=== PATIENT | female | born 1950 | race Caucasian/White ===

== ENCOUNTER 2018-05-22 13:57 | Inpatient (IN) | payer MEDICARE, BC ==
[~2018-05-22] VITALS: Ht 144.8 cm; Wt 76.7 kg
[2018-05-22] MEDS ORDERED: ONDANSETRON HCL/PF 4 MG/2 ML VIAL ONE ×2 (14:16→17:28)
[2018-05-22] MEDS ORDERED: MORPHINE SULFATE INJ 4 MG/ML DISP.SYRIN ONE ×2 (14:16→15:49)
[2018-05-22 14:29] LABS: BASOPHILS # (AUTO) 0.3 /CMM (0.0-0.2); BASOPHILS % (AUTO) 1.8 % (0.0-2.0); EOSINOPHILS % (AUTO) 1.3 % (0.0-6.0); HEMATOCRIT 42 % (33-45); HEMOGLOBIN 13.4 g/dL (11.5-14.8); LYMPHOCYTES # (AUTO) 1.3 /CMM (0.8-4.8); LYMPHOCYTES % (AUTO) 7.6 % (20.0-44.0); MEAN CORPUSCULAR HEMOGLOBIN 29 PG (26.0-33.0); MEAN CORPUSCULAR HGB CONC 32 g/dl (31.0-36.0); MEAN CORPUSCULAR VOLUME 91 fL (82-100); MONOCYTES # (AUTO) 1.1 /CMM (0.1-1.30); MONOCYTES % (AUTO) 6.9 % (2.0-12.0); NEUTROPHILS # (AUTO) 13.6 /CMM (1.8-8.9); NEUTROPHILS % (AUTO) 82.4 % (43.0-81.0); PLATELET COUNT (AUTO) 393 /CMM (150-450); RDW COEFFICIENT OF VARIATION 13.7 (11.5-15.0); RED BLOOD CELL COUNT(AUTO) 4.59 MIL/uL (4.0-5.2); WHITE BLOOD COUNT (AUTO) 16.5 K/uL (4.3-11.0)
[2018-05-22] MEDS ORDERED: ONDANSETRON HCL/PF 4 MG/2 ML VIAL IVP ONE (14:30)
[2018-05-22] MEDS ORDERED: IV NS 0.9% 500 ML BAG IV ONE (14:30)
[2018-05-22] MEDS ORDERED: MORPHINE SULFATE INJ 2 MG/ML DISP.SYRIN IV ONE ×2 (14:30→16:00)
[2018-05-22 14:41] LABS: CREATININE 0.8 mg/dL (0.6-1.3); POTASSIUM 3.6 mmol/L (3.5-5.1)
[2018-05-22] MEDS ORDERED: CLOP75TA15 PO ×2 (14:42→17:04)
[2018-05-22] MEDS ORDERED: AMLO-504 PO (14:42)
[2018-05-22] MEDS ORDERED: ATOR10TA PO (14:42)
[2018-05-22] MEDS ORDERED: PANT40TA4 PO (14:42)
[2018-05-22] MEDS ORDERED: ASPI-1169 PO (14:42)
[2018-05-22] MEDS ORDERED: PRED5TAB PO (14:42)
[2018-05-22] MEDS ORDERED: OXYM40TA12 PO (14:42)
[2018-05-22] MEDS ORDERED: FENO54TA PO (14:42)
[2018-05-22 14:45] LABS: INR 0.98 (0.85-1.15)
[2018-05-22 14:46] LABS: ALBUMIN 3.7 g/dL (3.4-5.0); BILIRUBIN,DIRECT 0.1 mg/dL (0.0-0.2); BILIRUBIN,TOTAL 0.7 mg/dL (0.2-1.0); TOTAL PROTEIN, SERUM 7.6 g/dL (6.4-8.2)
[2018-05-22 14:49] LABS: TROPONIN I 0.023 ng/mL (0.00-0.056)
[2018-05-22] MEDS ORDERED: INSU100V11 SQ (14:49)
[2018-05-22] MEDS ORDERED: INSU100V7 SQ (14:49)
[2018-05-22] MEDS ORDERED: BLOO-668 IN (14:49)
[2018-05-22] MEDS ORDERED: HYDROMORPHONE INJ 0.5 MG/0.5 ML SYRINGE IV STA (17:09)
[2018-05-22] MEDS ORDERED: HYDROMORPHONE 1 MG/1 ML DISP.SYRIN ONE (17:14)
[2018-05-22] MEDS ORDERED: ACETAMINOPHEN 325 MG TABLET PO PRN (17:30)
[2018-05-22] MEDS ORDERED: MAG HYDROX/AL HYDROX/SIMETH 30 ML UDC PO PRN (17:30)
[2018-05-22] MEDS ORDERED: MORPHINE SULFATE INJ 2 MG/ML DISP.SYRIN IV PRN (17:30)
[2018-05-22] MEDS ORDERED: TEMAZEPAM 15 MG CAPSULE PO PRN (17:30)
[2018-05-22] MEDS ORDERED: HYDROCODONE/APAP 5/325MG 1 EACH TABLET PO PRN (17:30)
[2018-05-22] MEDS ORDERED: LORAZEPAM INJ 2 MG/ML VIAL IV PRN (17:30)
[2018-05-22] MEDS ORDERED: Z GUARD REMEDY 2 OZ OINT TP PRN (17:30)
[2018-05-22] MEDS ORDERED: MAGNESIUM HYDROXIDE 30 ML UDC PO PRN (17:30)
[2018-05-22] MEDS ORDERED: DEXTROSE 50%-WATER 50 ML DISP.SYRIN IV PRN (17:30)
[2018-05-22] MEDS ORDERED: ONDANSETRON HCL/PF 4 MG/2 ML VIAL IV STA (17:32)
[2018-05-22 20:00] VITALS: BP 139/73
[2018-05-22] MEDS ORDERED: MORPHINE SULFATE INJ 4 MG/ML DISP.SYRIN IV PRN (20:00)
[2018-05-22] MEDS: HYDROMORPHONE INJ 2 MG/ML DISP.SYRIN IV PRN (20:20)
[2018-05-22] MEDS: ONDANSETRON HCL/PF 4 MG/2 ML VIAL IVP PRN (20:25)
[2018-05-22] MEDS: IV D5/0.45 NACL 1,000 ML IV PRN (20:43)
[2018-05-22] MEDS: BLOOD SUGAR DIAGNOSTIC 1 EACH STRIP VI SCH ×2 (22:00→23:00)
[2018-05-22] MEDS: *INSULIN REGULAR(HUMULIN R)HUM 100 UNIT/ML VIAL SQ PRN (22:48)
[2018-05-22] MEDS: INSULIN GLARGINE, 100 UNIT/ML CARTRIDGE SQ SCH (22:50)
[2018-05-22] MEDS: HEPARIN SODIUM, PORCINE 5000 UNITS/1 ML VIAL SQ SCH (22:51)
[2018-05-23 00:30] VITALS: BP 128/83
[2018-05-23 04:00] VITALS: BP 127/87
[2018-05-23] MEDS: INSULIN REGULAR, HUMAN 100 UNIT/ML 3 ML VIAL SQ PRN ×2 (06:31→17:31)
[2018-05-23] MEDS: HYDROMORPHONE INJ 2 MG/ML DISP.SYRIN IV PRN ×2 (06:32→12:23)
[2018-05-23] MEDS: BLOOD SUGAR DIAGNOSTIC 1 EACH STRIP VI SCH ×4 (06:32→21:59)
[2018-05-23 06:44] LABS: BASOPHILS % (AUTO) 0.4 % (0.0-2.0); EOSINOPHILS % (AUTO) 1.7 % (0.0-6.0); HEMATOCRIT 33 % (33-45); HEMOGLOBIN 10.4 g/dL (11.5-14.8); LYMPHOCYTES # (AUTO) 1.3 /CMM (0.8-4.8); LYMPHOCYTES % (AUTO) 14.4 % (20.0-44.0); MEAN CORPUSCULAR HEMOGLOBIN 30 PG (26.0-33.0); MEAN CORPUSCULAR HGB CONC 32 g/dl (31.0-36.0); MEAN CORPUSCULAR VOLUME 93 fL (82-100); MONOCYTES # (AUTO) 0.8 /CMM (0.1-1.30); MONOCYTES % (AUTO) 9.1 % (2.0-12.0); NEUTROPHILS # (AUTO) 6.7 /CMM (1.8-8.9); NEUTROPHILS % (AUTO) 74.4 % (43.0-81.0); PLATELET COUNT (AUTO) 269 /CMM (150-450); RDW COEFFICIENT OF VARIATION 14.6 (11.5-15.0); RED BLOOD CELL COUNT(AUTO) 3.51 MIL/uL (4.0-5.2)
[2018-05-23 06:57] LABS: CREATININE 0.8 mg/dL (0.6-1.3); MAGNESIUM 1.5 mg/dL (1.8-2.4); PHOSPHORUS 3.2 mg/dL (2.5-4.9); POTASSIUM 4.2 mmol/L (3.5-5.1)
[2018-05-23 08:00] VITALS: BP 116/55
[2018-05-23] MEDS: predniSONE 5 MG TABLET PO SCH ×2 (08:16→08:27)
[2018-05-23] MEDS: PANTOPRAZOLE 40 MG TABLET.DR PO SCH (08:16)
[2018-05-23] MEDS: ASPIRIN 81 MG TAB.CHEW PO SCH (08:16)
[2018-05-23] MEDS: ATORVASTATIN 10 MG TABLET PO SCH (08:16)
[2018-05-23] MEDS: HEPARIN SODIUM, PORCINE 5000 UNITS/1 ML VIAL SQ SCH ×3 (08:17→22:04)
[2018-05-23] MEDS: Fenofibrate 48 MG TABLET PO SCH (08:19)
[2018-05-23] MEDS ORDERED: AMLODIPINE BES PO SCH (09:00)
[2018-05-23] MEDS ORDERED: CLOPIDOGREL BISULFATE 75 MG TABLET PO SCH (09:00)
[2018-05-23] MEDS ORDERED: [UNRECOGNIZED DRUG - OTHER] PO SCH (09:00)
[2018-05-23] MEDS ORDERED: PANTOPRAZOLE 40 MG VIAL IV SCH (09:00)
[2018-05-23] MEDS ORDERED: OLMESARTAN MED PO SCH (09:00)
[2018-05-23 12:00] VITALS: BP 157/82
[2018-05-23] MEDS: Magnesium 1GM/D5W 100ML PREMIX 100 ML IV SCH ×2 (12:09→13:53)
[2018-05-23] MEDS: AZOR PO SCH (12:20)
[2018-05-23] MEDS: IV D5/0.45 NACL 1,000 ML IV PRN (12:38)
[2018-05-23 16:00] VITALS: BP 143/64
[2018-05-23] MEDS: HYDROMORPHONE 1 MG/1 ML DISP.SYRIN IV PRN (17:05)
[2018-05-23] MEDS: ONDANSETRON HCL/PF 4 MG/2 ML VIAL IVP PRN (17:15)
[2018-05-23 20:00] VITALS: BP 125/63
[2018-05-23] MEDS: *INSULIN REGULAR(HUMULIN R)HUM 100 UNIT/ML VIAL SQ PRN (22:02)
[2018-05-23] MEDS: INSULIN GLARGINE, 100 UNIT/ML CARTRIDGE SQ SCH (22:03)
[2018-05-24] VITALS: BP 101/50
[2018-05-24 04:00] VITALS: BP 120/65
[2018-05-24] MEDS: IV D5/0.45 NACL 1,000 ML IV PRN (04:37)
[2018-05-24] MEDS: HEPARIN SODIUM, PORCINE 5000 UNITS/1 ML VIAL SQ SCH ×2 (05:30→14:38)
[2018-05-24] MEDS: ONDANSETRON HCL/PF 4 MG/2 ML VIAL IVP PRN ×2 (05:38→12:16)
[2018-05-24] MEDS: HYDROMORPHONE 1 MG/1 ML DISP.SYRIN IV PRN ×2 (05:39→12:12)
[2018-05-24 06:53] LABS: CALCIUM, SERUM 7.8 mg/dL (8.5-10.1); MAGNESIUM 2.1 mg/dL (1.8-2.4); POTASSIUM 4.3 mmol/L (3.5-5.1)
[2018-05-24] MEDS: BLOOD SUGAR DIAGNOSTIC 1 EACH STRIP VI SCH ×2 (07:13→12:12)
[2018-05-24] MEDS: INSULIN REGULAR, HUMAN 100 UNIT/ML 3 ML VIAL SQ PRN ×2 (07:13→12:02)
[2018-05-24 08:00] VITALS: BP 137/75
[2018-05-24] MEDS: PANTOPRAZOLE 40 MG TABLET.DR PO SCH (08:28)
[2018-05-24] MEDS: ATORVASTATIN 10 MG TABLET PO SCH (08:29)
[2018-05-24] MEDS: predniSONE 5 MG TABLET PO SCH (08:30)
[2018-05-24] MEDS: ASPIRIN 81 MG TAB.CHEW PO SCH (08:32)
[2018-05-24] MEDS: Fenofibrate 48 MG TABLET PO SCH (08:33)
[2018-05-24] MEDS: AZOR PO SCH (08:34)
[2018-05-24 12:13] VITALS: BP 141/71
== END 2018-05-24 14:59 | disposition short-term general hospital (02) | DRG 560 ==
LOC: ER 13:59 → TELE 16:16
PROVIDERS: ADMIT Nurse Practitioner Acute Care; ATTEND Nurse Practitioner Acute Care
DX: M97.12XA Periprosthetic fracture around internal prosthetic left knee joint, initial encounter (principal); D68.69 Other thrombophilia; S82.892A Other fracture of left lower leg, initial encounter for closed fracture; I10 Essential (primary) hypertension; D72.829 Elevated white blood cell count, unspecified; E78.5 Hyperlipidemia, unspecified; M19.90 Unspecified osteoarthritis, unspecified site; E11.9 Type 2 diabetes mellitus without complications; Z86.718 Personal history of other venous thrombosis and embolism; Z96.642 Presence of left artificial hip joint; Z96.612 Presence of left artificial shoulder joint; Z79.02 Long term (current) use of antithrombotics/antiplatelets; M06.9 Rheumatoid arthritis, unspecified; W18.30XA Fall on same level, unspecified, initial encounter; Y92.091 Bathroom in other non-institutional residence as the place of occurrence of the external cause
CPT/HCPCS: 36415; 71045-TC; 73590-TC; 73610-TC; 73700-TC; 80048-TC; 80061-TC; 80076-TC; 82550-TC; 82962-TC; 83735-TC; 84100-TC; 84484-TC; 85025-TC; 85730-TC; 86850-TC; 87081-TC; 93307-TC; A4606; A6402; J1170; J1644; J1815; J2270; J2405; J3475; J3490; J7030; J7040; J7512; Z7610

== ENCOUNTER 2018-09-01 15:18 | Inpatient (IN) | payer MEDICARE, BC ==
[~2018-09-01] VITALS: Ht 144.8 cm; Wt 64.9 kg
[~2018-09-01 15:18] MED LIST: AMLO-504 PO; ASPI-1169 PO; ATOR10TA PO; BLOO-668 IN; CLOP75TA15 PO; FENO54TA PO; INSU100V11 SQ; INSU100V7 SQ; OXYM40TA12 PO; PANT40TA4 PO; PRED5TAB PO
--- NOTE | 2018-09-01 15:47 | NUR ---
PT BROUGHT IN BY [facility] FOR BLLOD STOOLS PT LIVES IN SNF AND HAS PICC LINE IN RIGHT UPPER ARM
[2018-09-01 16:32] LABS: BASOPHILS # (AUTO) 0.1 /CMM (0.0-0.2); BASOPHILS % (AUTO) 0.5 % (0.0-2.0); EOSINOPHILS % (AUTO) 3.7 % (0.0-6.0); HEMATOCRIT 26 % (33-45); HEMOGLOBIN 8.2 g/dL (11.5-14.8); LYMPHOCYTES # (AUTO) 1.2 /CMM (0.8-4.8); LYMPHOCYTES % (AUTO) 10.9 % (20.0-44.0); MEAN CORPUSCULAR HGB CONC 31 g/dl (31.0-36.0); MEAN CORPUSCULAR VOLUME 87 fL (82-100); MONOCYTES # (AUTO) 0.7 /CMM (0.1-1.30); MONOCYTES % (AUTO) 6.7 % (2.0-12.0); NEUTROPHILS # (AUTO) 8.8 /CMM (1.8-8.9); NEUTROPHILS % (AUTO) 78.2 % (43.0-81.0); PLATELET COUNT (AUTO) 268 /CMM (150-450); WHITE BLOOD COUNT (AUTO) 11.2 K/uL (4.3-11.0)
[2018-09-01 16:39] LABS: CALCIUM, SERUM 8.3 mg/dL (8.5-10.1); CREATININE 0.6 mg/dL (0.6-1.3); POTASSIUM 4.3 mmol/L (3.5-5.1)
[2018-09-01 16:59] LABS: ALBUMIN 2.5 g/dL (3.4-5.0); BILIRUBIN,DIRECT 0.1 mg/dL (0.0-0.2); BILIRUBIN,TOTAL 0.4 mg/dL (0.2-1.0); TOTAL PROTEIN, SERUM 6.2 g/dL (6.4-8.2)
--- NOTE | 2018-09-01 17:25 | NUR ---
PT BEING EVALUATED BY MD KLEIN PT BACK FROM CT SCANN PENDING ADMISSION
--- NOTE | 2018-09-01 17:36 | NUR ---
RN REPORT CALLED TO [facility] BEDSIDE NURSE PT ADMITTED TO 106 ADMITTING MD KENNEY
[2018-09-01] MEDS ORDERED: HYDROCODONE/APAP 5/325MG 1 EACH TABLET PO PRN (18:00)
[2018-09-01] MEDS ORDERED: ACETAMINOPHEN 325 MG TABLET PO PRN (18:00)
[2018-09-01] MEDS ORDERED: HYDROMORPHONE 1 MG/1 ML DISP.SYRIN IV STA (18:00)
[2018-09-01] MEDS ORDERED: Z GUARD REMEDY 2 OZ OINT TP PRN (18:00)
[2018-09-01] MEDS ORDERED: ONDANSETRON HCL/PF 4 MG/2 ML VIAL IVP PRN (18:00)
[2018-09-01] MEDS ORDERED: ZOLPIDEM TARTRATE 5 MG TABLET PO PRN (18:00)
[2018-09-01] MEDS ORDERED: HYDROMORPHONE 1 MG/1 ML DISP.SYRIN ONE (18:04)
--- NOTE | 2018-09-01 19:37 | NUR ---
MS RN NOTES PER PT, SHE IS NOT ALLERGIC TO HYDROMORPHONE. 2 RN WITNESS.
--- NOTE | 2018-09-01 20:00 | NUR ---
MS RN NOTES RECEIVED PT ON BED. A/O X 4. ON ROOM AIR SATURATING WELL. PT IV ACCESS ON RIGHT PICC LINE PATENT AND INTACT WITH IV NS @75CC/HR RUNNING PATENT AND INTACT. IV ACCESS ON AMOS 20G SL. HEAD OF BED ELEVATED. SIDE RAILS UP. CALL LIGHT WITHIN REACH. BED ALARM ON. WILL CONTINUE TO MONITOR PT CLOSELY.
[2018-09-01] MEDS ORDERED: HYDROMORPHONE INJ 2 MG/ML DISP.SYRIN IV PRN (21:00)
[2018-09-01] MEDS: IV NS 0.9% 1,000 ML IV PRN (21:25)
[2018-09-01] MEDS: ATORVASTATIN 10 MG TABLET PO SCH (21:25)
[2018-09-01] MEDS: BLOOD SUGAR DIAGNOSTIC 1 EACH STRIP IN SCH (21:29)
[2018-09-01] MEDS: INSULIN GLARGINE, 100 UNIT/ML CARTRIDGE SQ SCH (21:30)
--- NOTE | 2018-09-01 21:30 | NUR ---
MS RN NOTES LANTUS NOT GIVEN, PT DOES NOT WANT TO EAT DUE TO CLEAR LIQUID DIET.
--- NOTE | 2018-09-01 21:41 | NUR ---
MS ST NOTES PT WANT DILAUDID 2MG Q3H FOR PRN FOR PAIN. CALLED THE [facility] TO FAX HER PREVIOUS MEDS. INFORMED KIANA ABOUT PT REQUEST. PER KIANA CHU TO GIVE 2MG/1ML DILAUDID IN 1.5ML SOLN Q3H FOR PAIN 6-10. Addendum: 09/01/18 at 2338 by DONNELL LANDAVERDE RN DILAUDID 2MG / 1ML DILAUDID IN 1.5ML SOLUTION MAKING IT 3MG. Q3H FOR PAIN LEVEL 6-10.
[2018-09-01] MEDS: HYDROMORPHONE INJ 2 MG/ML DISP.SYRIN IV PRN (21:59)
[2018-09-02] VITALS (9 sets, daily range): BP systolic 136–159; BP diastolic 34–69
[2018-09-02] MEDS: HYDROMORPHONE INJ 2 MG/ML DISP.SYRIN IV PRN ×7 (03:56→22:57)
[2018-09-02 06:02] LABS: BASOPHILS % (AUTO) 0.7 % (0.0-2.0); EOSINOPHILS % (AUTO) 5.2 % (0.0-6.0); HEMATOCRIT 22 % (33-45); LYMPHOCYTES # (AUTO) 1.7 /CMM (0.8-4.8); LYMPHOCYTES % (AUTO) 26.1 % (20.0-44.0); MEAN CORPUSCULAR HGB CONC 32 g/dl (31.0-36.0); MEAN CORPUSCULAR VOLUME 86 fL (82-100); MONOCYTES # (AUTO) 0.7 /CMM (0.1-1.30); NEUTROPHILS # (AUTO) 3.7 /CMM (1.8-8.9); PLATELET COUNT (AUTO) 236 /CMM (150-450); RED BLOOD CELL COUNT(AUTO) 2.53 MIL/uL (4.0-5.2); WHITE BLOOD COUNT (AUTO) 6.5 K/uL (4.3-11.0)
[2018-09-02 06:14] LABS: HEMOGLOBIN 6.9 g/dL (11.5-14.8)
--- NOTE | 2018-09-02 06:17 | NUR ---
MS RN NOTES CALLED FONDANT COOKER FOR H/H OF 6.9 AND 22. WILL MONITOR PT CLOSELY.
[2018-09-02 06:25] LABS: THYROID STIMULATING HORMONE 0.701 uIU/mL (0.358-3.74)
--- NOTE | 2018-09-02 06:47 | NUR ---
MS RN NOTES NO ACUTE CHANGES NOTED DURING THE SHIFT. SCANTY AMOUNT OF RED BLOODY STOOL IN DIAPER. DUE MEDS GIVEN. PROVIDED COMFORT AND SAFETY. WILL ENDORSE TO THE AM NURSE FOR CONTINUITY OF CARE.
--- NOTE | 2018-09-02 06:47 | NUR ---
MS RN NOTES ONION TOPPER ORDERED ONE UNIT PRBC. WILL CONTINUE TO MONITOR PT CLOSELY.
--- NOTE | 2018-09-02 07:18 | NUR ---
MS/RN Patient received Patient received from [employer] food shift supervisor. Lab at bedside to cross match patient for one unit of PRBC's. All needs addressed, safety measures in place, will continue to monitor and ensure safety.
[2018-09-02 07:20] LABS: EOSINOPHILS % (MANUAL) 4 % (0-4); LYMPHOCYTES % (MANUAL) 23 % (16-48); MONOCYTES % (MANUAL) 7 % (0-11.0); NEUTROPHILS % (MANUAL) 66 (42-76)
[2018-09-02] MEDS: BLOOD SUGAR DIAGNOSTIC 1 EACH STRIP IN SCH ×4 (07:30→22:11)
[2018-09-02 07:35] LABS: ALBUMIN 2.1 g/dL (3.4-5.0); BILIRUBIN,TOTAL 0.3 mg/dL (0.2-1.0); CREATININE 0.5 mg/dL (0.6-1.3); MAGNESIUM 1.6 mg/dL (1.8-2.4); PHOSPHORUS 3.7 mg/dL (2.5-4.9); POTASSIUM 4.4 mmol/L (3.5-5.1); TOTAL PROTEIN, SERUM 5.4 g/dL (6.4-8.2)
[2018-09-02] MEDS: ATORVASTATIN 10 MG TABLET PO SCH (08:17)
[2018-09-02] MEDS: PANTOPRAZOLE 40 MG TABLET.DR PO SCH (08:17)
[2018-09-02] MEDS: predniSONE 5 MG TABLET PO SCH (08:18)
[2018-09-02] MEDS: AMLODIPINE BESYLATE 10 MG TABLET PO SCH (08:18)
[2018-09-02] MEDS: LOSARTAN POTASSIUM 50 MG TABLET PO SCH (08:18)
[2018-09-02] MEDS: Fenofibrate 48 MG TABLET PO SCH (09:10)
--- NOTE | 2018-09-02 09:39 | NUR ---
MS/RN Blood transfusion Blood transfusion started for Hb 6.9. Blood verified with second RN.
--- NOTE | 2018-09-02 10:23 | NUR ---
MS/RN Labs Labs reviewed, magnesium level 1.6, replaced by pharmacy.
--- NOTE | 2018-09-02 10:29 | NUR ---
WOUND CARE CONSULT: PT FOLLOWED BY PLASTIC SURGERY TEAM FOR WOUND CARE. DEFER TO SURGICAL TEAM FOR WOUND TREATMENT PLAN. ALL PRESSURE ULCER PREVENTION MEASURES IN PLACE AND DISCUSSED WITH NURSING STAFF. WILL SEE PRN. CURRENT BRADENT SCORE IS 21.
[2018-09-02] MEDS: Magnesium 1GM/D5W 100ML PREMIX 100 ML IV SCH ×2 (11:04→11:06)
[2018-09-02] MEDS: IV NS 0.9% 1,000 ML IV PRN (11:05)
--- NOTE | 2018-09-02 12:30 | NUR ---
MS/RN Blood transfusion Blood transfusion completed, no reaction noted, vital signs remained stable throughout the procedure. H&H scheduled to be redrawn at 4p.
--- NOTE | 2018-09-02 13:17 | NUR ---
MS/RN Consent Consent obtained for left knee wound debridement by Dr Silverman.
--- NOTE | 2018-09-02 14:08 | NUR ---
Patient currently resides at [facility] ctr [phone]. She requires assistance with adl's and assistive device with mobility. Has good family support. Current dc plan is to return to SNF once discharge. Addendum: 09/02/18 at 1408 by EULALIA MAYBERRY RN Amended: Links added.
[2018-09-02] MEDS ORDERED: LIDOCAINE 2%-EPI 1:100,000 30 ML VIAL TP ONE (14:30)
[2018-09-02] MEDS ORDERED: SILVER NITRATE APPLICATOR 1 EA BOX TP ONE (14:30)
--- NOTE | 2018-09-02 15:54 | NUR ---
MS/RN S/B Dr Osuna Seen by Dr Osuna - patient refusing colonoscopy at this time despite being educated as to the benefits of this test. As refusing, diet to be advanced as tolerated.
[2018-09-02] MEDS: GLUCERNA SHAKE 237 ML CAN PO SCH (17:00)
[2018-09-02 17:01] LABS: HEMOGLOBIN 8.2 g/dL (11.5-14.8)
--- NOTE | 2018-09-02 17:53 | NUR ---
MS/RN H&H H&H redrawn and now resulted as 8.11/17.
--- NOTE | 2018-09-02 20:30 | NUR ---
RN OPENING NOTES RECEIVED REPORT FROM AMANDA ST. PATIENT A/A/O X3, ABLE TO MAKE NEEDS KNOWN & STATE PAIN. BREATHING EVEN & UNLABORED, TOLERATING ROOM AIR. DENIES ANY SOB OR DIFFICULTY BREATHING. RADIAL PULSES PRESENT. RIGHT UPPER ARM PICC LINE INTACT & PATENT W/ DRESSING CDI & IVF NS INFUSING WELL @ 75 ML/HR. C/O LEFT FOOT PAIN, 03/31. PAIN MED TO BE GIVEN. SAFETY MEASURES IN PLACE W/ SIDE RAILS UP & BED ALARM ON. INSTRUCTED TO USE CALL LIGHT FOR ASSISTANCE. WILL CONTINUE TO MONITOR.
[2018-09-02] MEDS ORDERED: POLYETHYLENE GLYCOL 3350 17 GM POWD.PACK PO SCH (22:00)
[2018-09-02] MEDS: INSULIN GLARGINE, 100 UNIT/ML CARTRIDGE SQ SCH (22:12)
[2018-09-03] MEDS: HYDROMORPHONE INJ 2 MG/ML DISP.SYRIN IV PRN ×4 (02:02→11:54)
[2018-09-03 04:00] VITALS: BP 160/82
[2018-09-03] MEDS: IV NS 0.9% 1,000 ML IV PRN (05:21)
[2018-09-03] MEDS: BLOOD SUGAR DIAGNOSTIC 1 EACH STRIP IN SCH ×2 (07:35→11:43)
[2018-09-03] MEDS: GLUCERNA SHAKE 237 ML CAN PO SCH ×2 (07:58→11:42)
[2018-09-03] MEDS: PANTOPRAZOLE 40 MG TABLET.DR PO SCH (07:59)
[2018-09-03] MEDS: Fenofibrate 48 MG TABLET PO SCH (08:00)
[2018-09-03] MEDS: AMLODIPINE BESYLATE 10 MG TABLET PO SCH (08:00)
[2018-09-03] MEDS: predniSONE 5 MG TABLET PO SCH (08:00)
[2018-09-03] MEDS: ATORVASTATIN 10 MG TABLET PO SCH (08:00)
[2018-09-03] MEDS: LOSARTAN POTASSIUM 50 MG TABLET PO SCH (08:01)
--- NOTE | 2018-09-03 08:43 | NUR ---
MS ST NOTE PATIENT REQUESTING PAIN MEDICATION-DILAUDID IV FOR PAIN 05/01 PAIN ON LEFT KNEE/LEG. THROBBING FEELING. WILL REASSESS PAIN FOR EFFECTIVENESS Addendum: 09/03/18 at 0857 by STEPHANY OWENS RN DILAUDID 3MG GIVEN. 1MG WASTED WITH ALMA ROSA CALDERA.
[2018-09-03] MEDS ORDERED: DAKINS QUARTER STRENGTH (0.125%) 480 ML BOTTLE TOP SCH (09:00)
[2018-09-03] MEDS ORDERED: HYDROGEL DRESSING 90 GM TUBE TP SCH (09:00)
--- NOTE | 2018-09-03 11:54 | NUR ---
MS RN NOTE PATIENT REQUESTING PAIN MEDICATION-DILAUDID IV FOR PAIN 8/10 PAIN ON LEFT KNEE/LEG. THROBBING FEELING. DILAUDID 3MG IV GIVEN. 1 MG WASTED WITH ALMA ROSA GILLETTE. WILL REASSESS PAIN FOR EFFECTIVENESS
[2018-09-03 12:00] VITALS: BP 156/81
--- NOTE | 2018-09-03 14:12 | NUR ---
PAPER WINDER NOTE PATIENT DISCHARGED IN STABLE CONDITION. NO BELONGINGS AT BEDSIDE WITH PATIENT. NO SOB OR DISTRESS NOTED, ON ROOM AIR TOLERATING WELL. ABLE TO COMMUNICATE NEEDS. ALERT AND ORIENTED X3. ALL DUE MEDICATIONS GIVEN ORDERED. ALL NURSING CARE NEEDS ATTENDED TO NEEDED. RIGHT UPPER ARM PICC LINE INTACT AND PATENT FLUSHES WELL, PATIENT CAME IN WITH PICC LINE PRIOR TO ADMISSION FROM SNF. BLOOD SUGAR CHECKED THROUGHOUT SHIFT AND NO INSULIN COVERAGE. ALL DISCHARGE INSTRUCTIONS GIVEN TO PATIENT AND RN PICK UP MAN ISAAC. DISCHARGE INSTRUCTIONS RECEIVED BACK FROM PATIENT AND RN. LEFT VIA AMBULANCE TO [facility] Addendum: 09/03/18 at 1417 by STEPHANY OWENS RN WOUND DEBRIDEMENT NOT DONE. GAVE PATIENT INFORMATION FOR DR. RODRIGUEZ FOR OUTPATIENT CARE
--- NOTE | 2018-09-03 14:13 | NUR ---
PATIENT REFUSED TO HAVE WOUND PICTURES DONE. PATIENT STATED ' I HAD THE GENTLEMEN TAKE THEM THE OTHER DAY, NOT MUCH HAS CHANGED SINCE THEN.
== END 2018-09-03 14:12 | DRG 392 ==
LOC: ER 15:21 → TELE1 17:55 → MEDSG1 21:31
PROVIDERS: ADMIT Internal Medicine; ATTEND Internal Medicine
PROC: 30233N1 Transfusion of Nonautologous Red Blood Cells into Peripheral Vein, Percutaneous Approach (ICD-10-PCS; principal; 2018-09-02)
PROC: 02HV33Z Insertion of Infusion Device into Superior Vena Cava, Percutaneous Approach (ICD-10-PCS; 2018-09-02)
PROC: B548ZZA Ultrasonography of Superior Vena Cava, Guidance (ICD-10-PCS; 2018-09-02)
DX: K57.90 Diverticulosis of intestine, part unspecified, without perforation or abscess without bleeding (principal); L97.429 Non-pressure chronic ulcer of left heel and midfoot with unspecified severity; M80.88XA Other osteoporosis with current pathological fracture, vertebra(e), initial encounter for fracture; L97.329 Non-pressure chronic ulcer of left ankle with unspecified severity; N20.0 Calculus of kidney; E78.5 Hyperlipidemia, unspecified; I10 Essential (primary) hypertension; E11.9 Type 2 diabetes mellitus without complications; Z79.01 Long term (current) use of anticoagulants; E11.42 Type 2 diabetes mellitus with diabetic polyneuropathy; E11.51 Type 2 diabetes mellitus with diabetic peripheral angiopathy without gangrene; E11.621 Type 2 diabetes mellitus with foot ulcer; E11.622 Type 2 diabetes mellitus with other skin ulcer; M06.9 Rheumatoid arthritis, unspecified; M19.90 Unspecified osteoarthritis, unspecified site; Z79.4 Long term (current) use of insulin; Z88.2 Allergy status to sulfonamides; Z88.8 Allergy status to other drugs, medicaments and biological substances; Z91.013 Allergy to seafood; Z79.899 Other long term (current) drug therapy; Z79.82 Long term (current) use of aspirin; S82.899A Other fracture of unspecified lower leg, initial encounter for closed fracture; X58.XXXA Exposure to other specified factors, initial encounter; Y92.9 Unspecified place or not applicable; S32.9XXD Fracture of unspecified parts of lumbosacral spine and pelvis, subsequent encounter for fracture with routine healing; Z98.890 Other specified postprocedural states; Z98.62 Peripheral vascular angioplasty status; L97.529 Non-pressure chronic ulcer of other part of left foot with unspecified severity; M85.80 Other specified disorders of bone density and structure, unspecified site; K59.00 Constipation, unspecified; Z68.31 Body mass index [BMI] 31.0-31.9, adult; Z79.02 Long term (current) use of antithrombotics/antiplatelets; D72.829 Elevated white blood cell count, unspecified; T81.89XA Other complications of procedures, not elsewhere classified, initial encounter; Y83.9 Surgical procedure, unspecified as the cause of abnormal reaction of the patient, or of later complication, without mention of misadventure at the time of the procedure; Y92.129 Unspecified place in nursing home as the place of occurrence of the external cause; T40.2X5A Adverse effect of other opioids, initial encounter; D64.9 Anemia, unspecified
CPT/HCPCS: 36415; 80048-TC; 80053-TC; 80061-TC; 80076-TC; 82962-TC; 83735-TC; 84100-TC; 84443-TC; 85025-TC; 85027-TC; 85730-TC; 86850-TC; 86921-TC; 87081-TC; A4606; A6248; A6402; A6403; G0378; J1170; J1815; J3475; J3490; J7030; J7512; P9016-BL; Z7610

== ENCOUNTER 2018-09-07 12:29 | Outpatient (CLI) | payer MEDICARE, BC ==
[~2018-09-07 12:29] MED LIST changes: -ASPI-1169 PO; -CLOP75TA15 PO
== END 2018-09-07 23:59 | disposition home health service (06) ==
LOC: WOU 12:29
PROVIDERS: ATTEND Surgery
DX: E11.621 Type 2 diabetes mellitus with foot ulcer (principal); L97.528 Non-pressure chronic ulcer of other part of left foot with other specified severity; L97.428 Non-pressure chronic ulcer of left heel and midfoot with other specified severity; L97.328 Non-pressure chronic ulcer of left ankle with other specified severity; T81.31XA Disruption of external operation (surgical) wound, not elsewhere classified, initial encounter; M06.9 Rheumatoid arthritis, unspecified; M62.50 Muscle wasting and atrophy, not elsewhere classified, unspecified site; I10 Essential (primary) hypertension; Z91.81 History of falling; Z96.653 Presence of artificial knee joint, bilateral; Z96.642 Presence of left artificial hip joint; Z79.02 Long term (current) use of antithrombotics/antiplatelets; Z79.82 Long term (current) use of aspirin; Z79.4 Long term (current) use of insulin
CPT/HCPCS: 11042; 11043; 17250; A6402 ×3; Z7610

== ENCOUNTER 2018-09-13 21:01 | Inpatient (IN) | END 2018-09-14 21:39 | disposition short-term general hospital (02) | DRG 920 | DX: T81.30XA Disruption of wound, unspecified, initial encounter (principal); M00.9 Pyogenic arthritis, unspecified; L97.329 Non-pressure chronic ulcer of left ankle with unspecified severity; L97.429 Non-pressure chronic ulcer of left heel and midfoot with unspecified severity; L03.116 Cellulitis of left lower limb; N39.0 Urinary tract infection, site not specified; L02.416 Cutaneous abscess of left lower limb; E46 Unspecified protein-calorie malnutrition; I10 Essential (primary) hypertension; M06.9 Rheumatoid arthritis, unspecified; Z90.710 Acquired absence of both cervix and uterus; Z88.2 Allergy status to sulfonamides; Z88.8 Allergy status to other drugs, medicaments and biological substances; Z79.84 Long term (current) use of oral hypoglycemic drugs; Z91.013 Allergy to seafood; Z79.899 Other long term (current) drug therapy; L97.529 Non-pressure chronic ulcer of other part of left foot with unspecified severity; E11.622 Type 2 diabetes mellitus with other skin ulcer; E11.42 Type 2 diabetes mellitus with diabetic polyneuropathy; E11.621 Type 2 diabetes mellitus with foot ulcer; E78.5 Hyperlipidemia, unspecified; D64.9 Anemia, unspecified; Z68.27 Body mass index [BMI] 27.0-27.9, adult; M19.90 Unspecified osteoarthritis, unspecified site; Y83.9 Surgical procedure, unspecified as the cause of abnormal reaction of the patient, or of later complication, without mention of misadventure at the time of the procedure; Y92.129 Unspecified place in nursing home as the place of occurrence of the external cause; Z96.652 Presence of left artificial knee joint ==